=== PATIENT | female | born 1960 | race Caucasian/White ===

== ENCOUNTER 2025-04-21 10:08 | Outpatient (CLI) | payer OTHER | END 2025-04-21 10:09 | disposition home or self-care (01) | LOC: SCSBT 10:08 | PROVIDERS: ATTEND Internal Medicine | DX: D05.11 Intraductal carcinoma in situ of right breast (principal); M85.851 Other specified disorders of bone density and structure, right thigh; M85.852 Other specified disorders of bone density and structure, left thigh; Z79.818 Long term (current) use of other agents affecting estrogen receptors and estrogen levels | CPT/HCPCS: 77080 ==